=== PATIENT | male | born 1960 | race Caucasian/White ===

== ENCOUNTER 2025-01-16 11:55 | Inpatient (IN) | payer OTHER, SELFPAY ==
[2025-01-16] VITALS (8 sets, daily range): BP systolic 119–151; BP diastolic 59–79; BMI 42.5; BMI 23.8
[2025-01-16 04:51] LABS: Hematocrit 47.5 % (39.0-52.0); Hemoglobin 15.9 g/dL (13.0-18.0); Mean Corp Hgb Conc. 33.5 g/dL (33.0-37.0); Mean Corpuscular Volume 103.9 fL (80.0-94.0); Platelet Count 185 10^3/uL (130-400); Red Cell Dist. Width 14.2 % (11.5-14.5)
[2025-01-16 04:57] LABS: Urine Character Slightly Cloudy (Clear)
[2025-01-16 05:11] LABS: ALT (SGPT) 22 U/L (0-50); AST (SGOT) 31 U/L (17-59); Albumin 4.1 g/dl (3.5-5.0); Alkaline Phosphatase 239 U/L (38-126); Blood Urea Nitrogen 5 mg/dl (9-20); Calcium 9.4 mg/dl (8.4-10.2); Carbon Dioxide 26 mmol/L (22-30); Chloride 97 mmol/L (98-107); Glucose 153 mg/dl (70-99); Lipase 26 U/L (23-300); Potassium 4.3 mmol/L (3.5-5.1); Sodium 131 mmol/L (135-145); Total Protein 7.3 g/dl (6.3-8.2); eGFR > 60.00
[2025-01-16 05:17] LABS: Urine Squamous Cell >30 /LPF (Few)
[2025-01-16 05:18] LABS: Urine White Cell >100 /HPF (0-5)
--- NOTE | 2025-01-16 05:56 | ED.GENMED ---
History of Present Illness
<Chaparro Wong Jr., PA-C - Last Filed: 01/17/25 12:33>
General
Chief Complaint: Abdominal Pain
Source: patient
Exam Limitations: none
Time Seen by Provider: 01/16/25 05:12
Nursing documentation reviewed up to this point in time: agreed with
History of Present Illness
History of Present Illness:
64-year-old male past medical history of A-fib currently on Eliquis, hypertension hyperlipidemia presenting with concerns of right lower quadrant abdominal pain progressing over the past 12 hours or so. Does have some slightly loose bowel
movements. Denies any vomiting. Denies any chest pain shortness of breath. No urinary symptoms.
Past History
<Chaparro Wong Jr., PA-C - Last Filed: 01/17/25 12:33>
Past History
ED Past Medical History: HTN and Other (Gout)
Social History
Tobacco: Non-smoker
Alcohol: Occasional
Family History
Family History: Other (Mother with hypertension)
Review of Systems
<Chaparro Wong Jr., PA-C - Last Filed: 01/17/25 12:33>
Review of Systems
Allergies reviewed?: Yes
All Other Systems: ROS reviewed and negative except as documented in HPI and ROS
Phy Exam
<RYAN Bartlett Jr. Last Filed: 01/17/25 12:33>
Physical Exam
Physical Exam:
GENERAL: Alert , in no apparent distress
EYE: pupils equal and reactive
NECK: Supple, no significant adenopathy.
ENT: o/p clr, mmm.
CARDIAC: Regular rate and rhythm .
LUNGS: Clear breath sounds bilaterally, no acute respiratory distress, no wheezes/rales/rhonchi
ABDOMEN: Right lower quadrant pain also right mid abdomen discomfort no pain to the left side of the abdomen
NEUROLOGICAL: Alert and oriented, no focal neuro deficits
SKIN: Warm and dry, skin intact.
MUSCULOSKELETAL: No edema, well perfused.
PSYCH: Normal and appropriate interaction.
Course
<Chaparro Wong Jr., PA-C - Last Filed: 01/17/25 12:33>
Orders/Labs/Results
Orders:
Orders
01/16/25 04:32
C-Reactive Protein Routine
Comment: ADD ON
Complete Blood Count/With Diff Urgent
Comprehensive Metabolic Panel Urgent
Lipase Urgent
Urinalysis Reflex To Culture Urgent
Date Specimen was Collected: 01/16/25
Time Specimen was Collected: 04:26
Urine Microscopic Reflex Cult Urgent
Urine Culture Urgent
SERG Source: U
Specimen Description:
Date Specimen was Collected: 01/16/25
Time Specimen was Collected: :
01/16/25 05:45
CT Abd/Pel (IV only)-DH only Urgent
Comment:
Reason For Exam: rlq pain
01/16/25 10:50
Piperacillin/Tazo 3.375 Gram [Zosyn] 3.375 gram in 50 ml IV NOW
01/16/25 11:15
Admit/Transfer Patient As Directed
Co-Sign Provider:
Level of Care: Inpatient admission
Assign to:: Medical/Surgical
Physician / Group: Hospitalist
Diagnosis: Abdominal pain
Reason for Hospitalization: .
Expected length of stay greater than two midnights?: Yes
ELOS- Estimated Length of Stay in days: 3
I certify the patient meets the requirements for IP care: Yes
GASTROINTESTINAL CONSULT Urgent
Consulting Provider: Matthew Woods
Was physician already notified: Yes
Reason for consult: Fluid collection RLQ, not enough to drain, abd pain
PRN Pain Medication Management As Directed
May give lesser potent ordered pain med per pt: Yes
preference::
Protocol:: Medication orders for pain may be administered in a
manner that supports deferring to patient preference
when the pt is:
- Requesting an ordered lesser potent pain medication.
Least to most potent pain medications are defined
as: acetaminophen < NSAID < tramadol < opioids
(morphine, oxycodone, hydromorphone).
- Requesting a lesser dose of the same medication IF
ORDERED.
- Requesting a less intrusive route of administration
if both routes are prescribed by the provider (PO <
IV).
01/16/25 11:28
Lactic Acid Stat
Blood Culture Stat
SERG Source: Blood/Venous
Specimen Description:
01/16/25 11:49
Add On- LAB Routine
Tests Added?: crp
01/16/25 11:50
Consult Surgery [SURGICAL CONSULT] Routine
Consulting Provider: Graham Herring
Was physician already notified: Yes
Reason for consult: consulted by ED
01/16/25 15:15
Consult Surgery [SURGICAL CONSULT] Routine
Consulting Provider: Graham Herring
Was physician already notified: Yes
Reason for consult: Abodminal pain, possible acute appendicitis
DVT Contraindication [VTE Contraindication] Routine
VTE Mechanical Device Contraindication: Medical Contraindication
Pharmocologic Contraindication: Medical Contraindication
Abnormal Lab Results
01/16/25
04:32
WBC 13.0 H 10^3/uL
(4.8-10.8)
RBC 4.57 L 10^6/uL
(4.70-6.10)
MCV 103.9 H fL
(80.0-94.0)
MCH 34.8 H pg
(27.0-31.0)
Abs Immat Gran (auto) 0.1 H 10^3/uL
(0-0.05)
Absolute Neuts (auto) 10.2 H 10^3/uL
(1.4-6.5)
Absolute Lymphs (auto) 0.7 L 10^3/uL
(1.2-3.4)
Absolute Monos (auto) 1.2 H 10^3/uL
(0.1-0.6)
Absolute Eos (auto) 0.8 H 10^3/uL
(0-0.7)
Neutrophils % 78.4 H %
(42.2-75.2)
Lymphocytes % 5.5 L %
(20.5-51.1)
Monocytes % 9.4 H %
(1.7-9.3)
Sodium 131 L mmol/L
(135-145)
Chloride 97 L mmol/L
(98-107)
BUN 5 L mg/dl
(9-20)
Glucose 153 H mg/dl
(70-99)
Total Bilirubin 2.2 H mg/dl
(0.2-1.3)
Alkaline Phosphatase 239 H U/L
(38-126)
C-Reactive Protein 181.40 H mg/L
(0.0-10.00)
Urine Ketones 2+ A
(Negative)
Ur Occult Blood Reflex 1+ A
(Negative)
Urine Nitrite (Reflex) Positive A
(Negative)
Leukocyte Esterase Rfl 3+ A
(Negative)
Urine RBC 11-15 A /HPF
(0-2)
Urine WBC (Reflex) >100 A /HPF
(0-5)
Urine Bacteria (Reflex) Many A
(Negative)
Urine Albumin (Reflex) 1+ A
(Neg - Trace)
01/16/25 04:32
01/16/25 04:32
Vital Signs
Initial and Last Documented VS:
Initial Vital Signs
Temp Pulse Resp BP Pulse Ox
98.7 F 62 20 151/79 94
01/16/25 04:18 01/16/25 04:18 01/16/25 04:18 01/16/25 04:18 01/16/25 04:18
Last Documented Vital Signs
Temp Pulse Resp BP Pulse Ox
98.4 F 55 18 133/69 97
01/17/25 07:36 01/17/25 08:36 01/17/25 07:36 01/17/25 08:36 01/17/25 09:00
<Shira Torrez, FAMILY INDEPENDENCE CASE MANAGER - Last Filed: 01/16/25 15:58>
Orders/Labs/Results
Orders:
Orders
01/16/25 04:32
C-Reactive Protein Routine
Comment: ADD ON
Complete Blood Count/With Diff Urgent
Comprehensive Metabolic Panel Urgent
Lipase Urgent
Urinalysis Reflex To Culture Urgent
Date Specimen was Collected: 01/16/25
Time Specimen was Collected: 04:26
Urine Microscopic Reflex Cult Urgent
Urine Culture Urgent
SERG Source: U
Specimen Description:
Date Specimen was Collected: 01/16/25
Time Specimen was Collected: 04:26
01/16/25 05:45
CT Abd/Pel (IV only)-[facility] only Urgent
Comment:
Reason For Exam: rlq pain
01/16/25 10:50
Piperacillin/Tazo 3.375 Gram [Zosyn] 3.375 gram in 50 ml IV NOW
01/16/25 11:15
Admit/Transfer Patient As Directed
Co-Sign Provider:
Level of Care: Inpatient admission
Assign to:: Medical/Surgical
Physician / Group: Hospitalist
Diagnosis: Abdominal pain
Reason for Hospitalization: .
Expected length of stay greater than two midnights?: Yes
ELOS- Estimated Length of Stay in days: 3
I certify the patient meets the requirements for IP care: Yes
GASTROINTESTINAL CONSULT Urgent
Consulting Provider: Matthew Woods
Was physician already notified: Yes
Reason for consult: Fluid collection RLQ, not enough to drain, abd pain
PRN Pain Medication Management As Directed
May give lesser potent ordered pain med per pt: Yes
preference::
Protocol:: Medication orders for pain may be administered in a
manner that supports deferring to patient preference
when the pt is:
- Requesting an ordered lesser potent pain medication.
Least to most potent pain medications are defined
as: acetaminophen < NSAID < tramadol < opioids
(morphine, oxycodone, hydromorphone).
- Requesting a lesser dose of the same medication IF
ORDERED.
- Requesting a less intrusive route of administration
if both routes are prescribed by the provider (PO <
IV).
01/16/25 11:28
Lactic Acid Stat
Blood Culture Stat
SERG Source: Blood/Venous
Specimen Description:
01/16/25 11:49
Add On- LAB Routine
Tests Added?: crp
01/16/25 11:50
Consult Surgery [SURGICAL CONSULT] Routine
Consulting Provider: Graham Herring
Was physician already notified: Yes
Reason for consult: consulted by ED
01/16/25 15:15
Consult Surgery [SURGICAL CONSULT] Routine
Consulting Provider: Graham Herring
Was physician already notified: Yes
Reason for consult: Abodminal pain, possible acute appendicitis
DVT Contraindication [VTE Contraindication] Routine
VTE Mechanical Device Contraindication: Medical Contraindication
Pharmocologic Contraindication: Medical Contraindication
Abnormal Lab Results
01/16/25
04:32
WBC 13.0 H 10^3/uL
(4.8-10.8)
RBC 4.57 L 10^6/uL
(4.70-6.10)
MCV 103.9 H fL
(80.0-94.0)
MCH 34.8 H pg
(27.0-31.0)
Abs Immat Gran (auto) 0.1 H 10^3/uL
(0-0.05)
Absolute Neuts (auto) 10.2 H 10^3/uL
(1.4-6.5)
Absolute Lymphs (auto) 0.7 L 10^3/uL
(1.2-3.4)
Absolute Monos (auto) 1.2 H 10^3/uL
(0.1-0.6)
Absolute Eos (auto) 0.8 H 10^3/uL
(0-0.7)
Neutrophils % 78.4 H %
(42.2-75.2)
Lymphocytes % 5.5 L %
(20.5-51.1)
Monocytes % 9.4 H %
(1.7-9.3)
Sodium 131 L mmol/L
(135-145)
Chloride 97 L mmol/L
(98-107)
BUN 5 L mg/dl
(9-20)
Glucose 153 H mg/dl
(70-99)
Total Bilirubin 2.2 H mg/dl
(0.2-1.3)
Alkaline Phosphatase 239 H U/L
(38-126)
C-Reactive Protein 181.40 H mg/L
(0.0-10.00)
Urine Ketones 2+ A
(Negative)
Ur Occult Blood Reflex 1+ A
(Negative)
Urine Nitrite (Reflex) Positive A
(Negative)
Leukocyte Esterase Rfl 3+ A
(Negative)
Urine RBC 11-15 A /HPF
(0-2)
Urine WBC (Reflex) >100 A /HPF
(0-5)
Urine Bacteria (Reflex) Many A
(Negative)
Urine Albumin (Reflex) 1+ A
(Neg - Trace)
01/16/25 04:32
01/16/25 04:32
Vital Signs
Initial and Last Documented VS:
Initial Vital Signs
Temp Pulse Resp BP Pulse Ox
98.7 F 62 20 151/79 94
01/16/25 04:18 01/16/25 04:18 01/16/25 04:18 01/16/25 04:18 01/16/25 04:18
Last Documented Vital Signs
Temp Pulse Resp BP Pulse Ox
98.4 F 55 18 133/69 97
01/17/25 07:36 01/17/25 08:36 01/17/25 07:36 01/17/25 08:36 01/17/25 09:00
<Chaparro Wong Jr., PA-C - Last Filed: 01/17/25 12:33>
MDM/Problems Addressed
MDM/Problems Addressed:
64-year-old male presenting to the emergency department today with concerns of right lower quadrant abdominal pain over the past 12 hours. On arrival vital signs normal labs showing slight white count.
<Shira Torrez FAMILY INDEPENDENCE CASE MANAGER - Last Filed: 01/16/25 15:58>
MDM/Problems Addressed
MDM/Problems Addressed:
64-year-old male presenting to the emergency department today with concerns of right lower quadrant abdominal pain over the past 12 hours. On arrival vital signs normal labs showing slight white count.
8:55 AM:
64-year-old male with history of NIDDM, SIADH with hyponatremia, neuropathy, asymptomatic pyuria, pulmonary nodule followed by pulmonary (suspicious for CA), hypokalemia
Received patient from [facility]. Patient is laying quietly in bed, right lower quadrant pain he states is 7/10, started a few days ago but worsened yesterday with loose stool last night. He declines when pain med offered.
Tender RLQ, appears in no distress.
CBC: WBC 13.0 otherwise unremarkable CMP:
Mild elevation of bilirubin at 2.2, mild hyponatremia with sodium 131, alk phos 239 which is baseline for him
UA: Specimen looks contaminated with many bacteria and greater than 30 squames, WBC greater than 100, +3 leukocytes, nitrates positive. History of asymptomatic pyuria w 16-20 WBCs.
Consider treating this with >100 WBC, Culture pending
Abdomen/pelvis CT with IV only contrast radiology report read: Impression: Moderate inflammatory changes within the right lower quadrant with thickening of the terminal ileum and cecum, likely outside [employer] of a terminal ileitis. The appendix
also appears dilated and inflamed, likely secondarily involved although acute appendicitis is within the differential. Small amount of fluid in the right lower quadrant, some of which appears loculated.
Consulted general surgery Dr. Herring
10:[address] Herring requesting IV antibiotics, admit to Hospitalist, checking to see if IR can drain
Hospitalist notified of admission.
<Chaparro Wong Jr., PA-C - Last Filed: 01/17/25 12:33>
*Pulse Oximetry
SaO2: 94
Oxygen Mode of Delivery: Room air
<Shira Torrez FAMILY INDEPENDENCE CASE MANAGER - Last Filed: 01/16/25 15:58>
*Pulse Oximetry
Patient hypoxic: no
*Critical Care Note
Total Time (30-74mins, 75-104mins- exclusive of procedures): Not Applicable
ED Attending Note
<Chaparro Wong Jr., PA-C - Last Filed: 01/17/25 12:33>
-
Portions of this chart may have been created with voice recognition software.� Occasional wrong word or��sound alike� substitutions may have occurred due to the inherent limitations of voice recognition software.
Discharge Plan
Departure
Patient Disposition: Admit
Date of Disposition: 01/16/25
Time of Disposition: 10:50
Admit to: Med/Surg
Presentation/result/management discussed w/ accepting MD/DO: Hospitalist
Condition: Fair
Discharge Problem:
Intra-abdominal abscess
Interventions
Interventions:
*Risk Screen - Suicide Last Done: 01/16/25 04:21
*General Assessment Last Done: 01/16/25 04:21
*Neglect/Abuse Screening Last Done: 01/16/25 04:21
*ED- Fall Risk Assessment Last Done: 01/16/25 05:22
*ED COVID-19 Vaccine History Last Done: 01/16/25 04:21
*Nursing Disposition Last Done: 01/16/25 15:40
AZ-[id number]-Cbhpdaselk Assessment Last Done: 01/16/25 05:22
Discharge Date and Time
Discharge Date/Time: 01/16/25 15:15
[2025-01-16 06:02] LABS: Nucleated Red Blood Cells % 0 % (-)
[2025-01-16] MEDS: ZOSYN 50 IV (11:15)
--- NOTE | 2025-01-16 11:18 | HPS.HSE ---
Family Physician
-
Family Physician: Ryne Ceja
Chief Complaint
-
Abdominal pain since last night
History of Present Illness
64 years old male presented with lower abdominal pain. Started suddenly. Was mild then progressed overnight. He did not feel like eating but denied nausea or vomiting. He denied fever or chills. The pain was persistent this morning and reported
to the emergency room. In the ER, he had leukocytosis. CAT scan showed inflammation resembling terminal ileitis but could not rule out appendicitis. No fevers. Patient takes Eliquis. He was seen by surgery, recommend to hold Eliquis and
continue with IV antibiotics, GI consultation. IR reviewed the images, no drainable abscess present.
Medical History
Past Medical History
Past Medical History: Reports Other ( Arrhythmias (afib), NIDDM, hyponatremia on salt tabs, neuropathy, right eye blindness, Gout, chronic anemia.)
Past Surgical History: Reports Other (No recent major surgery )
Social History
Tobacco: Former Smoker
Alcohol: Occasional
Drug: None
Personal: Single
Living: Alone
Employment: Retired
Family History
Family History: Not pertinent
Allergies / Home Medications
Allergies reflects when Allergies were last updated in [employer].
Home Medications with original date entered in [employer]
Allergy/Medication List:
Allergies
Allergy/AdvReac Type Severity Reaction Status Date / Time
No Known Allergies Allergy Verified 01/16/25 04:24
Home Medications
allopurinol 100 mg tablet 100 mg PO DAILY Gout 11/10/22
cholecalciferol (vitamin D3) 25 mcg (1,000 unit) capsule (Vitamin D3) 25 mcg PO DAILY Supplement 11/10/22
cyanocobalamin (vitamin B-12) 1,000 mcg tablet 1,000 mcg PO DAILY Supplement 11/10/22
pantoprazole 40 mg tablet,delayed release (Protonix) 40 mg PO DAILY gi #24 tabs 11/19/22
apixaban 5 mg tablet (Eliquis) 5 mg PO BID Blood Clot Prevention/Tx 01/15/23
famotidine 40 mg tablet 40 mg PO QPM Gastrointestinal Issue 01/15/23
polyvinyl alcohol-povidone (PF) 1.4 %-0.6 % eye drops in a dropperette (Refresh Classic (PF)) 1 drops BOTH EYES BID dryness 01/15/23
sodium chloride 1,000 mg soluble tablet 1,000 mg PO BID #60 tabs 01/18/23
torsemide 5 mg tablet 5 mg PO DAILY #30 tabs 01/18/23
carvedilol 12.5 mg tablet (Coreg) 12.5 mg PO BID 01/16/25
metformin 500 mg tablet 500 mg PO DAILY Constipation 01/16/25
pregabalin 100 mg capsule (Lyrica) 100 mg PO DAILY 01/16/25
pregabalin 100 mg capsule (Lyrica) 200 mg PO HS 01/16/25
Review of Systems
-
History Source: Patient
A 12 point ROS was completed and negative except as noted: Yes
Constitutional: Denies Fever
EENT: Denies Sore Throat
Respiratory: Denies Cough
Cardiac: Denies Chest Pain
Abdomen/GI: Reports Abdominal Pain and Diarrhea; Denies Nausea or Vomiting
: Denies Dysuria
Musculoskeletal: Denies Joint Pain or Joint Swelling
Skin: Denies Rash
Neurological: Denies Numbness
Endocrine: Denies Temp Intolerance
Hematologic/Lymphatic: Denies Bruising
Psych: Denies Panic Disorder
Physical Exam
Vital Signs
Vital Signs
Temp Pulse Resp BP Pulse Ox
98.7 F 56 18 135/75 96
01/16/25 04:18 01/16/25 08:32 01/16/25 08:30 01/16/25 07:00 01/16/25 08:30
Physical Exam
General: No Apparent Distress and Comfortable
HEENT: Moist mucous membranes, Atraumatic and Other (right cornea opacity )
Respiratory: Clear; No Wheezes
Cardiac: S1/S2 and Regular Rhythm
GI: Soft and Tender (RLQ)
Genito-urinary: No Silveira
Musculoskeletal: No Edema
Skin: Warm; No Jaundice
Neuro: AO x 3 and Nonfocal/grossly intact
Psych: Calm and Intact Judgment/Insight
Laboratory Results
-
01/16/25 04:32
01/16/25 04:32
Laboratory Results
Total Bilirubin 2.2 mg/dl (0.2-1.3) H 01/16/25 04:32
AST 31 U/L (17-59) 01/16/25 04:32
ALT 22 U/L (0-50) 01/16/25 04:32
Alkaline Phosphatase 239 U/L (38-126) H 01/16/25 04:32
Lipase 26 U/L (23-300) 01/16/25 04:32
Impression/Plan
-
64 years old male presented with abdominal pain
#Acute terminal colitis, cannot rule out appendicitis/inflammatory bowel disease
Admit the patient to the hospital. Patient is not toxic appearing. Positive leukocytosis.
Patient was seen by surgery, add inflammatory marker, CRP to blood work. Will try clear liquid diet.
IV antibiotics.
Holding Eliquis in case surgical intervention will be needed.
Add lactic acid to the lab
Blood culture
Appreciate surgery and GI help
# History of paroxysmal A-fib. Currently in sinus rhythm. Holding Eliquis for possible surgical intervention. Continue with rate control.
# Essential hypertension
Continue with carvedilol. Holding diuretic torsemide temporarily while severe inflammation.
# History of diabetes. Will continue with insulin sliding scale. Avoid hypoglycemia.
#Diabetic neuropathy, continue home dose of Lyrica.
# History of gout, continue with allopurinol
# Chronic hyponatremia. Continue with salt tablets.
Total time spent to see the patient, examine the patient, review lab results and data, discuss treatment plan with patient, ER doctor, nursing staff around 75 minutes
--- NOTE | 2025-01-16 11:33 | CON.GS ---
Addendum entered and electronically signed by Graham Herring MD 01/16/25 14:01:
I saw and examined the patient.
The Clutch Mechanic's note was reviewed and I agree with the note.
Comment: 24hrs of RLQ pain that began in the RLQ. SDenies f/c/n/v. Denmies anorexia. Denies migration of pain. Never had this pain before. Mild-mod ttp to RLQ on exam without guarding. AFVSS. WBC 13K. CT c/w terminal ileitis vs acute appendicitis.
More likely ileitis given his presentation. Plan for obs admit with iv abx. Hold eliquis for now. Last dose am. OK for CLD. Rec GI consult. Will follow
Original Note:
Consultation
-
Date/Time Consultation Performed: 01/16/25 1045
Medical History
-
Chief Complaint: RLQ pain
History of Present Illness:
Mr Alvarez is a 64 yo male with a h/o Afib on Eliquis (LD 01/15 am), DM, alcoholic hepatitis, colitis, HTN and gout who presented through the ED with RLQ pain. He notes it began yesterday as a sharp pain and progressively became worse. He was able
to go to sleep last night but was awakened from sleep after midnight due to the pain which he notes doubled him over causing him to present for evaluation. He denies acute appetite changes but does note that he has not had much of an appetite over
the summer which he attributes to the heat. He denies nausea or vomiting. He has a few episodes of nonbloody diarrhea since yesterday. He denies fevers or chills. On exam, there is focal tenderness present to the RLQ without distention noted. He has
done cologuard testing but has never had a colonscopy.
Past Medical History
Past Medical History: Arrhythmias (afib), NIDDM and Other (hyponatremia on salt tabs, neuropathy, right eye blindness)
Social History
Tobacco: Former Smoker
Personal: Single
Living: Alone
Employment: Employed ([employer], semi-retired)
Family History
Family History: Reviewed & Not Pertinent
Allergies / Home Medications
Allergy/AdvReac Type Severity Reaction Status Date / Time
No Known Allergies Allergy Verified 01/16/25 04:24
�Medication �Instructions �Recorded �Confirmed �Type
allopurinol 100 mg tablet 100 mg PO DAILY Gout 11/10/22 01/16/25 History
cholecalciferol (vitamin D3) 25 25 mcg PO DAILY Supplement 11/10/22 01/16/25 History
mcg (1,000 unit) capsule (Vitamin
D3)
cyanocobalamin (vitamin B-12) 1,000 mcg PO DAILY Supplement 11/10/22 01/16/25 History
1,000 mcg tablet
pantoprazole 40 mg tablet,delayed 40 mg PO DAILY gi #24 tabs 11/19/22 01/16/25 Rx
release (Protonix)
apixaban 5 mg tablet (Eliquis) 5 mg PO BID Blood Clot 01/15/23 01/16/25 History
Prevention/Tx
famotidine 40 mg tablet 40 mg PO QPM Gastrointestinal Issue 01/15/23 01/16/25 History
polyvinyl alcohol-povidone (PF) 1 drops BOTH EYES BID dryness 01/15/23 01/16/25 History
1.4 %-0.6 % eye drops in a
dropperette (Refresh Classic (PF))
sodium chloride 1,000 mg soluble 1,000 mg PO BID #60 tabs 01/18/23 01/16/25 Rx
tablet
torsemide 5 mg tablet 5 mg PO DAILY #30 tabs 01/18/23 01/16/25 Rx
carvedilol 12.5 mg tablet (Coreg) 12.5 mg PO BID 01/16/25 01/16/25 History
metformin 500 mg tablet 500 mg PO DAILY Constipation 01/16/25 01/16/25 History
pregabalin 100 mg capsule (Lyrica) 100 mg PO DAILY 01/16/25 01/16/25 History
pregabalin 100 mg capsule (Lyrica) 200 mg PO HS 01/16/25 01/16/25 History
Review of Systems
-
History Source: Patient
All other systems: Negative unless noted
A 10 point review of systems was completed, and was negative except as per HPI.
Physical Exam
Vital Signs
Temp Pulse Resp BP Pulse Ox
98.7 F 56 18 135/75 96
01/16/25 04:18 01/16/25 08:32 01/16/25 08:30 01/16/25 07:00 01/16/25 08:30
01/15/25 01/16/25 01/17/25
06:59 06:59 06:59
Actual Weight 84 kg
Body Mass Index (BMI) 42.5
Lab Results
01/16/25 04:32
01/16/25 04:32
WBC 13.0 10^3/uL (4.8-10.8) H 01/16/25 04:32
Hgb 15.9 g/dL (13.0-18.0) 01/16/25 04:32
Hct 47.5 % (39.0-52.0) 01/16/25 04:32
Plt Count 185 10^3/uL (130-400) 01/16/25 04:32
Abs Immat Gran (auto) 0.1 10^3/uL (0-0.05) H 01/16/25 04:32
Neutrophils % 78.4 % (42.2-75.2) H 01/16/25 04:32
Physical Exam
General: Well Developed and Comfortable
HEENT: Other (missing teeth, right eye blind)
GI: Soft, Non Distended and Tender (RLQ)
Skin: Warm and Dry
Neuro: Awake, Alert and AO x 3
Psych: Calm
Data Reviewed
-
CT Scan: Image Personally Visualized and interpreted, Report Reviewed by me, Discussed with Physician and Discussed with Patient
Labs: Labs Reviewed by me, Discussed with Physician and Discussed with Patient
Old Records: Reviewed
Assessment / Plan
-
64 yo male presenting with a h/o Afib on Eliquis (LD 724 am), DM, alcoholic hepatitis, colitis, HTN and gout who presented through the ED with RLQ pain [id number] with diarrhea. CT imaging reviewed with inflammatory process noted to the right lower
quadrant with ascending colon and terminal ileal thickening with appendiceal distention as well with small surrounding fluid. Diverticulum seen as well throughout the colon. Case discussed with IR, no drainable abscess present. High suspicion for
IBD although a more acute process such as appendicitis or diverticulitis of the ascending colon remains in the differential. Of note UA + for nitrites, leuks, bacteria with cx pending ?UTI. Mild leukocytosis present. Afebrile, vitals stable.
Plan:
Consult GI for IBD work up
Will add CRP to labs
Ok for Clears from surgical standpoint, no plans for surgery at this time
Continue IV ABX
Hold Eliquis in case procedure/surgery becomes warranted
--- NOTE | 2025-01-16 11:36 | EDRN ---
While patient was receiving Zosyn abx patient stated he started to feel itchy around his groin, this RN was at bedside and stopped the infusion. Patient received about 40ml of medication. Patient noted to have a hive on right leg. Dr. Muñoz at
bedside at this time and made aware.
--- NOTE | 2025-01-16 13:52 | CON.GI ---
Addendum entered and electronically signed by Matthew Woods DO 01/16/25 16:14:
I saw and examined the patient.
The CELLULOID TRIMMER's note was reviewed and I agree with the note.
Comment: Mr. Alvarez is a 64 y.o male with past medical history of HTN, HLD, non-IDDM, R eye blindness, and A Fib (on eliquis) who presented to the ED with RLQ abdominal pain. He denies any looser stools, diarrhea, nausea/vomiting or other
fevers/chills. Denies any similar symptoms in the past. Of note, previous CT imaging back on 2022 (for diarrhea/dizziness) revealed diffuse wall thickening and adjacent inflammatory changes consistent with colitis which was most pronounced within
the cecum and ascending colon. He previously declined a colonoscopy due to fear of complications of the procedure and notes a previous Cologuard which was negative. Otherwise, no family hx of CRC or IBD. He denies any significant NSAIDs. On
admission, labs notable for leukocytosis of 13k along with CRP 181. CT imaging revealed moderate inflammatory changes within the RLQ with thickening of the terminal ileum and cecum concerning for terminal ileitis. Additionally, concerned for a
dilated and inflammed appendix concerning for possible appendicits along with small amount of loculated fluid. Clinically, his presentation seems most consistent with ileitis rather than appendicitis. Further, concern for underlying IBD given his
prior CT imaging in the past and appears to have chronicity as well based on his repeat CT scan. Much less likely infectious although should still be ruled out with stool culture along with Yersinia as can cause pseudoappendicitis as well as
terminal ileitis. He would benefit from an eventual colonoscopy but would defer at this time given the concern for possible appendicitis and favor treating empirically with IV abx for now while waiting for his inflammation to improve. In the
meantime, would obtain fecal calprotectin and okay to trial CLD today. Patient did express interest in potentially being discharged tomorrow. Favor monitoring at least for 24 hours along with IV antibiotics along with obtaining stool studies as
below. Appreciate surgical recs given the concern for possible appendicitis but again doubt clinically. See rest of care as outlined below for additional recommendations.
GI will continue to follow, please call with any questions or concerns.
Original Note:
Consultation
-
Date/Time Consultation Requested: 01/16/25 1130
Date/Time Consultation Performed: 01/16/25 1350
Requesting Provider: SHANDA Heller
Performing Provider: SHANDA Casas, Matthew Woods DO
Reason for Consultation: ileitis/appendicitis
Medical History
Chief Complaint / HPI
Chief Complaint: weakness, yellow skin, dark urine
History of Present Illness:
The patient is a 64-year-old male with a past medical history significant for afib on Eliquis, NIDDM, ETOH hepatitis, colitis, gout, hypertension, hyponatremia, hyperlipidemia, right eye blindness with ER eval for RLQ pain. On admission noted with
WBC 13,000, Na 131, bili 2.2, AST 31, ALT 22, alk phos 239, CRP 181.4. Ct on admission inflammatory changes RLQ of TI and cecum with terminal ileitis with appendix dilated. In review with patient pain began 4 pm 01/16. Pain was 7/10 and still
persistent today. Pain worse with movement and minimally improved since admission. Pt denies similar pain. He did have abnormal CT in 2022 with similar finding with colitis pronounced in cecum and ascending colon but noted in majority of colon
with pt was noted with ETOH hepatitis. He was recommended colonoscopy but declined to proceed with concern for complication. He admits to completing follow up Cologuard that was negative. He denies any chronic GI issues with odynophagia, dysphagia,
GERD, nausea, vomiting, diarrhea, constipation, abdominal pain, or rectal bleeding but did have some diarrhea after admission.
Past Medical History
Past Medical History: Arrhythmias (afib ), HTN, Hypercholesterolemia, NIDDM and Other (chronic hyponatremia, right eye blindness, ETOH hepatitis, coltiis, gout,hepatic steatosis )
Past Surgical History: Other (corneal transplant)
Social History
Tobacco: Other (cigar in past )
Alcohol: None (quit 2012 )
Drug: None
Living: Other (friend )
Employment: Employed ([employer] work )
Family History
Family History: Other (father-liver cirrhosis; no FH CRC, pancreatic or liver cancer)
Allergies / Home Medications
Allergy/AdvReac Type Severity Reaction Status Date / Time
No Known Allergies Allergy Verified 01/16/25 04:24
�Medication �Instructions �Recorded
allopurinol 100 mg tablet 100 mg PO DAILY Gout 11/10/22
cholecalciferol (vitamin D3) 25 25 mcg PO DAILY Supplement 11/10/22
mcg (1,000 unit) capsule (Vitamin
D3)
cyanocobalamin (vitamin B-12) 1,000 mcg PO DAILY Supplement 11/10/22
1,000 mcg tablet
pantoprazole 40 mg tablet,delayed 40 mg PO DAILY gi #24 tabs 11/19/22
release (Protonix)
apixaban 5 mg tablet (Eliquis) 5 mg PO BID Blood Clot 01/15/23
Prevention/Tx
famotidine 40 mg tablet 40 mg PO QPM Gastrointestinal Issue 01/15/23
polyvinyl alcohol-povidone (PF) 1 drops BOTH EYES BID dryness 01/15/23
1.4 %-0.6 % eye drops in a
dropperette (Refresh Classic (PF))
sodium chloride 1,000 mg soluble 1,000 mg PO BID #60 tabs 01/18/23
tablet
torsemide 5 mg tablet 5 mg PO DAILY #30 tabs 01/18/23
carvedilol 12.5 mg tablet (Coreg) 12.5 mg PO BID 01/16/25
metformin 500 mg tablet 500 mg PO DAILY Constipation 01/16/25
pregabalin 100 mg capsule (Lyrica) 100 mg PO DAILY 01/16/25
pregabalin 100 mg capsule (Lyrica) 200 mg PO HS 01/16/25
Review of Systems
-
History Source: Patient
Constitutional: Reports No Symptoms
EENT: Reports No Symptoms
Respiratory: Reports No Symptoms
Cardiac: Reports No Symptoms
Abdomen/GI: Reports Diarrhea (after admission)
: Reports Dark Urine
Musculoskeletal: Reports No Symptoms
Skin: Reports No Symptoms
Neurological: Reports No Symptoms
Endocrine: Reports No Symptoms
Hematologic/Lymphatic: Reports No Symptoms
Vital Signs
Temp Pulse Resp BP Pulse Ox
98.7 F 52 15 133/75 98
01/16/25 04:18 01/16/25 13:30 01/16/25 13:30 01/16/25 13:21 01/16/25 13:21
Physical Exam
Exam
General: Well Developed, Well Nourished and No Apparent Distress
HEENT: Other (right eye deviation with blindness )
Respiratory: Clear
Cardiac: Regular Rhythm
GI: Soft, Non Distended and Tender (right lower abdomen )
Musculoskeletal: No Clubbing and No Cyanosis
Skin: Warm and Dry
Neuro: Awake, Alert and AO x 3
Psych: Calm
Results
WBC 13.0 10^3/uL (4.8-10.8) H 01/16/25 04:32
Hgb 15.9 g/dL (13.0-18.0) 01/16/25 04:32
Hct 47.5 % (39.0-52.0) 01/16/25 04:32
MCV 103.9 fL (80.0-94.0) H 01/16/25 04:32
Plt Count 185 10^3/uL (130-400) 01/16/25 04:32
Absolute Neuts (auto) 10.2 10^3/uL (1.4-6.5) H 01/16/25 04:32
Sodium 131 mmol/L (135-145) L 01/16/25 04:32
Potassium 4.3 mmol/L (3.5-5.1) 01/16/25 04:32
Chloride 97 mmol/L (98-107) L 01/16/25 04:32
Carbon Dioxide 26 mmol/L (22-30) 01/16/25 04:32
BUN 5 mg/dl (9-20) L 01/16/25 04:32
Creatinine 1.1 mg/dL (0.7-1.3) 01/16/25 04:32
Calcium 9.4 mg/dl (8.4-10.2) 01/16/25 04:32
Total Bilirubin 2.2 mg/dl (0.2-1.3) H 01/16/25 04:32
AST 31 U/L (17-59) 01/16/25 04:32
ALT 22 U/L (0-50) 01/16/25 04:32
Alkaline Phosphatase 239 U/L (38-126) H 01/16/25 04:32
Lipase 26 U/L (23-300) 01/16/25 04:32
Diagnostic Image Results:
01/16/25 CT Abd/Pel (IV only)-DH only
1. Moderate inflammatory changes within the right lower quadrant with thickening of the terminal ileum and cecum, likely regional sales representative of a terminal ileitis. The appendix also appears dilated and inflamed, likely secondarily involved although
acute appendicitis is within the differential. Small amount of fluid in the right lower quadrant, some of which appears loculated.
2. Additional findings above.
11/11/22 MR Abdomen W/o & W Contrast
1. No MRCP evidence for choledocholithiasis. No intrahepatic or extrahepatic bile duct dilation.
2. Severe hepatic steatosis.
11/10/24 CT Abd/pelvis W Iv Cont
1. Diffuse wall thickening and adjacent inflammatory change adjacent to the colon, consistent with colitis. Colitis is most pronounced within the cecum and proximal ascending colon, but involves the majority of the colon. Colitis is likely
infectious or inflammatory. No evidence of pneumatosis intestinalis or extraluminal air.
2. Scattered diverticuli are seen within the colon, however there is no CT evidence of diverticulitis.
3. Severe diffuse fatty infiltration of the liver, which is approximately equal in attenuation to the gallbladder on delayed phase images. No biliary ductal dilation is appreciated.
4. Small gastric diverticulum arising from the greater curvature, without inflammatory change to suggest gastric diverticulitis.
Prior GI Procedures:
EGD: none
Colonoscopy: none reports neg Cologuard in past
Assessment / Plan
-
The patient is a 64-year-old male with a past medical history significant for afib on Eliquis, NIDDM, ETOH hepatitis denies current use, prior noted colitis, gout, hypertension, hyponatremia, hyperlipidemia, right eye blindness with ER eval for RLQ
pain. On admission noted with WBC 13,000, Na 131, bili 2.2, AST 31, ALT 22, alk phos 239, CRP 181.4. Ct on admission inflammatory changes RLQ of TI and cecum with terminal ileitis with appendix dilated. In review with patient pain began 4 pm
01/16. Pain was 7/10 and still persistent today. Pain worse with movement and minimally improved since admission. Pt denies similar pain. He did have abnormal CT in 2022 with similar finding with colitis pronounced in cecum and ascending colon
but noted in majority of colon with pt was noted with ETOH hepatitis. He was recommended colonoscopy but declined to proceed with concern for complication. He admits to completing follow up Cologuard that was negative. He denies any chronic GI
issues.
-RLQ pain -- CT with inflammatory likely regional sales representative of a terminal ileitis with dilated appendix
-leukocytosis
-prior CT-- 2022 with colitis pronounced cecum and ascending colon
-elevated CRP
other med problems:
afib on Eliquis
- NIDDM
-ETOH hepatitis denies current use
-gout
- hypertension
-hyponatremia
-hyperlipidemia
-right eye blindness
PLAN:
etiology of symptoms concern for colitis-acute vs chronic with CT 2022 similar finding vs appendix related
appreciate surgical consult
agree with abx
add stool cultures including yersinia
add fecal calprotectin
advance diet as tolerated
discussed with patient about colonoscopy -- ideally in several week after inflammatory process improves as did not proceed in past -- he is concerned about risks-- discussed without colonoscopy cannot confirm if chronic colitis is present
current Eliquis hold
OP follow up with Dr. Wade
pt asking about discharge for AM -- advised he would be seen in AM to determine if stable for discharge-- discussed if not medically stable if need to leave may need to sign of against medical advise
-
-
Thank you for consultation and allowing me to participate in the patient's care. Please call the nutritionist public health GI physician during the after hours with any questions or concerns.
[2025-01-16 13:56] LABS: C-Reactive Protein 181.40 mg/L (0.0-10.00)
--- NOTE | 2025-01-16 14:22 | CM ---
Patient seen at bedside in ed. Patient states that he lives with a friend that is not always at home. Patient PCP is Dr. Ceja and he uses the [facility] in [place] for pharmacy needs.
Patient states that he is no driving at this time and has had no needs for VN in the past. Patient uses a cane but has a walker at home. Patient home is a one story home. Patient stated that he has important plans for Sunday and he is uncertain if
he can stay longer than tomorrow. CM will continue to follow for discharge planning needs.
Plan home with no needs vs home with VN
[2025-01-16] MEDS: NSS 1000 IV (15:42)
--- NOTE | 2025-01-16 15:53 | PTCARENOTE ---
Received patient from ED via stretcher. AAOx3, ambulated to bed. Assessed and oriented to room. Call ruiz in close reach.
[2025-01-16] MEDS: INVANZ 60 MG IV (16:04)
[2025-01-16 16:28] LABS: Glucose - Point of Care 106 mg/dl (70-99)
[2025-01-16] MEDS: PEPCID 40 MG PO (16:55)
[2025-01-16] MEDS: COREG 12.5 MG PO (21:03)
[2025-01-16] MEDS: LYRICA 200 MG PO (21:03)
[2025-01-16] MEDS: SODIUM CHLORIDE 1 GRAM PO (21:03)
[2025-01-16 22:06] LABS: Glucose - Point of Care 103 mg/dl (70-99)
[2025-01-17] MEDS: NSS IV (03:26)
--- NOTE | 2025-01-17 06:30 | W.PN.GI.CBS2 ---
Today's Communication / Plan
-
Advance diet as tolerated to low-residue, low-fiber diet. Favor continuing antibiotics and can transition to Augmentin near discharge. Reasonable to d/c if tolerating solids with close outpatient follow-up with his primary GI, Dr. Wade, as
patient would eventually benefit from an eventual colonoscopy as outpatient. See rest of care as outlined below.
Assessment / Plan
-
#RLQ Abd Pain
#C/f Terminal Ileitis w/ Dilated Appendix
#Leukocytosis
#Prior CT Imaging with Right-sided Colitis (2022)
Impression: Mr. Alvarez is a 64 y.o male with past medical history of HTN, HLD, non-IDDM, R eye blindness, and A Fib (on eliquis) who presented to the ED with RLQ abdominal pain. He denies any looser stools, diarrhea, nausea/vomiting or other
fevers/chills. Denies any similar symptoms in the past. Of note, previous CT imaging back on 2022 (for diarrhea/dizziness) revealed diffuse wall thickening and adjacent inflammatory changes consistent with colitis which was most pronounced within
the cecum and ascending colon. He previously declined a colonoscopy due to fear of complications of the procedure and notes a previous Cologuard which was negative. Otherwise, no family hx of CRC or IBD. He denies any significant NSAIDs. On
admission, labs notable for leukocytosis of 13k along with CRP 181. CT imaging revealed moderate inflammatory changes within the RLQ with thickening of the terminal ileum and cecum concerning for terminal ileitis. Additionally, concerned for a
dilated and inflammed appendix concerning for possible appendicits along with small amount of loculated fluid. Clinically, his presentation seems most consistent with ileitis rather than appendicitis. Further, concern for underlying IBD given his
prior CT imaging in the past and appears to have chronicity as well based on his repeat CT scan. Much less likely infectious although should still be ruled out with stool culture along with Yersinia as can cause pseudoappendicitis as well as
terminal ileitis. He would benefit from an eventual colonoscopy but would defer at this time given the concern for possible appendicitis and favor treating empirically with IV abx for now while waiting for his inflammation to improve. In the
meantime, would obtain fecal calprotectin and favor ongoing CLD and may advanced diet as tolerated,
Recommendations:
- Tolerating CLD yesterday, may advance diet as tolerated to low-fiber, low-residue from GI standpoint
- Given his resolution of abdominal pain, reasonable to d/c as patient is very eager to go home. Would trial low-residue diet and if tolerating advised f/u with his primary GI
- Would continue empiric IV abx, would transition to oral antibiotics with Augmentin near discharge for 10 day course
- No stool studies have yet to be sent as without any recent BM. Would send stool cultures, Yersinia, along with fecal calprotectin if able to have BM
- No plans for an inpatient colonoscopy at this time, but discussed close follow-up with his primary Control Center Operator with Dr. Wade as an outpatient given the concern for IBD
- Counseled to avoid NSAIDs, limit alcohol
- Surgery following- appreciate recs
- Rest of care as per primary team
Discussed with primary internal medicine team. GI will continue to follow if patient remains in hospital, however if tolerating solids reasonable to discharge as long as okay with surgery.
Subjective
Subjective
Date of Service: January 17, 2025
- No stool studies
- Remains on IV Zosyn, otherwise no acute events overnight
Feeling well, denies any further RLQ discomfort or other abdominal pain. Denies any recent bowel movement, but passing flatus. No other nausea or vomiting. Denies any fevers, chills or other constitutional symptoms.
Objective
Data Reviewed
Laboratory Data:
Laboratory Results
Total Bilirubin 2.2 mg/dl (0.2-1.3) H 01/16/25 04:32
AST 31 U/L (17-59) 01/16/25 04:32
ALT 22 U/L (0-50) 01/16/25 04:32
Alkaline Phosphatase 239 U/L (38-126) H 01/16/25 04:32
Lipase 26 U/L (23-300) 01/16/25 04:32
Vital Signs and I&O:
Vital Signs
Temp Pulse Resp BP Pulse Ox
97.6 F 62 16 119/59 97
01/16/25 23:06 01/16/25 23:06 01/16/25 23:06 01/16/25 23:06 01/16/25 23:06
I&O
01/15/25 01/16/25 01/17/25
06:59 06:59 06:59
Intake Total 1220 / 1220
Balance 1220 / 1220
Physical Exam
Physical Exam
HEENT: Anicteric and Moist mucous membranes
Pulmonary: Other (Normal WOB on room air)
GI: Soft, Non Distended and Non Tender
Neuro: Non Focal
[2025-01-17 07:36] VITALS: BP 133/69
[2025-01-17 08:13] LABS: Glucose - Point of Care 91 mg/dl (70-99)
[2025-01-17 08:16] LABS: Hematocrit 44.7 % (39.0-52.0); Hemoglobin 15.2 g/dL (13.0-18.0); Mean Corp Hgb Conc. 34.0 g/dL (33.0-37.0); Mean Corpuscular Volume 102.8 fL (80.0-94.0); Platelet Count 165 10^3/uL (130-400); Red Cell Dist. Width 13.6 % (11.5-14.5)
[2025-01-17] MEDS: PROTONIX 40 MG PO (08:35)
[2025-01-17] MEDS: SODIUM CHLORIDE 1 GRAM PO (08:35)
[2025-01-17] MEDS: ZYLOPRIM 100 MG PO (08:35)
[2025-01-17] MEDS: COREG 12.5 MG PO (08:36)
[2025-01-17] MEDS: LYRICA 100 MG PO (08:37)
--- NOTE | 2025-01-17 08:55 | W.PN.HOSP.TC ---
Today's Communication/Plan
-
discharge if tolerates diet
Assessment / Plan
Assessment / Plan
Physical Exam
General: No Apparent Distress and Comfortable
HEENT: Moist mucous membranes, Atraumatic and Other (right cornea opacity )
Respiratory: Clear; No Wheezes
Cardiac: S1/S2 and Regular Rhythm
GI: Soft and not Tender (RLQ)
Genito-urinary: No Silveira
Musculoskeletal: No Edema
Skin: Warm; No Jaundice
Neuro: AO x 3 and Nonfocal/grossly intact
Psych: Calm and Intact Judgment/Insight
64 years old male presented with abdominal pain
#Acute terminal colitis with Dilated Appendix
he is feeling much better
Afebrile
Leukocytosis resolved
Blood culture NGTD
Normal abdominal exam
No tenderness on exam
Passing gas
No nausea, tolerating oral intake
Tolerated antibiotic
He is insisting to go home, seen by GI doctor, ok to dc on oral antibiotic with OP follow up
Appreciate surgery and GI help
# History of paroxysmal A-fib. Currently in sinus rhythm. Holding Eliquis for possible surgical intervention. Continue with rate control.
# Essential hypertension
Continue with carvedilol. Can resume diuretic torsemide upon discharge.
# History of diabetes. No changes intended.
#Diabetic neuropathy, continue home dose of Lyrica.
# History of gout, continue with allopurinol. No joint swelling or tenderness.
# Chronic hyponatremia. Continue with salt tablets.
Total discharge time spent to see the patient, examine the patient, review lab results and data, discuss discharge/ treatment plan with patient, consultants, nursing staff around 65 minutes
Anticipated Discharge: Today
Subjective/Interval History
-
Date of Service: January 17, 2025
No chest pain
No abdominal pain
No nausea
Wants to go home
Objective Data
-
Labs:
Laboratory Results
01/17/25 01/17/25
07:54 08:24
WBC 9.5
Hgb 15.2
Hct 44.7
Plt Count 165
Sodium Cancelled Pending
Potassium Cancelled Pending
Chloride Cancelled Pending
Carbon Dioxide Cancelled Pending
BUN Cancelled Pending
Creatinine Cancelled Pending
Glucose Cancelled Pending
Calcium Cancelled Pending
Total Bilirubin Cancelled Pending
AST Cancelled Pending
ALT Cancelled Pending
Alkaline Phosphatase Cancelled Pending
Vital Signs:
Vital Signs
Temp Pulse Resp BP Pulse Ox
98.4 F 55 18 133/69 97
01/17/25 07:36 01/17/25 08:36 01/17/25 07:36 01/17/25 08:36 01/17/25 07:36
I&O
01/16/25 01/17/25 01/18/25
06:59 06:59 06:59
Intake Total 1220 / 1220
Balance 1220 / 1220
[2025-01-17] MEDS: OMNICEF 300 MG PO (10:13)
--- NOTE | 2025-01-17 11:20 | CM ---
CM met with pt bedside
DC order noted
Pt already dressed and ambulating in the hallway
Plan for home no needs
Friend has been contacted and will transport home
Discharge Disposition- home no needs, friend transport
--- NOTE | 2025-01-17 11:57 | W.DCSUMMARY ---
Discharge Summary
Discharge Data
Date of Admission: 01/16/25
Date of Discharge: 01/17/25
-
Pending Results: No
Hospital Course
64 years old male presented with abdominal pain. He had leukocytosis and reported mild diarrhea at home. His pain was lower abdominal mostly to the right side. He was evaluated by surgery and GI doctor. CAT scan showed signs of terminal ileitis
which was extensive and dilated appendix after reviewing the images by surgery and GI. Plan to give antibiotic and IV hydration. Pain subsided. Patient did not need pain medicine. He was maintained on usual dose of Lyrica. Patient was able to
tolerate diet. Recommendations were to follow with GI in the office. GI did not think the inflammation consistent with inflammatory bowel disease but was mostly infectious due to sudden onset and lack of other signs. Blood culture did not show
any growth. Leukocytosis resolved. Patient remained hemodynamically stable. He was able to ambulate independently without discomfort. Patient was given oral antibiotic with no reaction. Patient was discharged home in stable condition.
Discharge Plan
-
Patient Disposition: Home (Routine Discharge)
Discharge Diagnosis/Procedures: Acute terminal ileitis with Dilated Appendix
You were seen by surgery and GI doctor. You are given antibiotic. You will need to follow-up with GI doctor in the office.
You will need to finish course of oral antibiotic. You are discharged on cefdinir, potential side effects include GI symptoms like diarrhea/skin rashes/allergy.
Diet: Low Residue and Diabetic, Carb Controlled
Additional Diets: Continue with low residue diet for 3 days then advance to regular diet if no abdominal pain or nausea
Referrals:
Ryne Ceja MD [Family Provider, Family Practice] - in one to two weeks
Monica Wade MD [Active, Gastroenterology]
Referral Note: call GI to arrange 3-4 week follow up. Will need to consider colonoscopy to evaluate RUQ colon thickening noted in 2022 and 2024 to rule out chronic colitis
Prescriptions:
New
cefdinir 300 mg Capsule
300 mg PO Q12 Qty: 18 0RF
Continued
cyanocobalamin (vitamin B-12) 1,000 mcg Tablet
1,000 mcg PO DAILY
allopurinol 100 mg tablet
100 mg PO DAILY
cholecalciferol (vitamin D3) [Vitamin D3] 25 mcg (1,000 unit) Capsule
25 mcg PO DAILY
pantoprazole [Protonix] 40 mg tablet,delayed release (DR/EC)
40 mg PO DAILY Qty: 24 0RF
famotidine 40 mg tablet
40 mg PO QPM
Eliquis 5 mg tablet
5 mg PO BID
Refresh Classic (PF) 1.4-0.6 % dropperette
1 drops BOTH EYES BID
torsemide 5 mg Tablet
5 mg PO DAILY Qty: 30 0RF
sodium chloride 1,000 mg Tablet,Soluble
1,000 mg PO BID Qty: 60 0RF
metformin 500 mg tablet
500 mg PO DAILY
carvedilol [Coreg] 12.5 mg Tablet
12.5 mg PO BID
pregabalin [Lyrica] 100 mg Capsule
100 mg PO DAILY
pregabalin [Lyrica] 100 mg Capsule
200 mg PO HS
Discharge Orders:
Discharge Patient (As Directed); Ordered 01/17/25
Ordered By: Chandrakant Muñoz
Discharge Date and Time
Discharge Date/Time: 01/17/25 12:42
Print Language: BOLIVIAN
[2025-01-17 12:02] LABS: ALT (SGPT) 18 U/L (0-50); AST (SGOT) 22 U/L (17-59); Albumin 3.8 g/dl (3.5-5.0); Alkaline Phosphatase 214 U/L (38-126); Blood Urea Nitrogen 12 mg/dl (9-20); Calcium 9.0 mg/dl (8.4-10.2); Carbon Dioxide 21 mmol/L (22-30); Chloride 101 mmol/L (98-107); Estimated Creatinine Clearance 87 ml/min; Glucose 124 mg/dl (70-99); Potassium 4.0 mmol/L (3.5-5.1); Sodium 132 mmol/L (135-145); Total Protein 6.9 g/dl (6.3-8.2); eGFR > 60.00
--- NOTE | 2025-01-17 12:15 | W.PN.GS2 ---
Today's Communication / Plan
-
No plan for surgery.
For discharge today and follow-up with GI.
Assessment / Plan
-
Probable terminal ileitis and clinically doing well.
His pain has resolved and his white count is normalized.
Subjective Data
-
Date of Service: January 17, 2025
He is tolerating low residue diet and has no pain.
Objective Data
-
Intake and Output
01/16/25 01/17/25 01/18/25
06:59 06:59 06:59
Intake Total 1220 / 1220
Balance 1220 / 1220
Intake:
Oral fluids 960 / 960
IV fluids (Total) 200 / 200
IV piggybacks 60 / 60
Other:
Number of approximated MODERATE 2
amounts of urine
Vital Signs
Temp Pulse Resp BP Pulse Ox
98.4 F 55 18 133/69 97
01/17/25 07:36 01/17/25 08:36 01/17/25 07:36 01/17/25 08:36 01/17/25 09:00
Lab Results
01/17/25 07:54
01/17/25 09:25
Calcium 9.0 mg/dl (8.4-10.2) 01/17/25 09:25
Total Bilirubin 1.3 mg/dl (0.2-1.3) 01/17/25 09:25
AST 22 U/L (17-59) 01/17/25 09:25
ALT 18 U/L (0-50) 01/17/25 09:25
Alkaline Phosphatase 214 U/L (38-126) H 01/17/25 09:25
Total Protein 6.9 g/dl (6.3-8.2) 01/17/25 09:25
Albumin 3.8 g/dl (3.5-5.0) 01/17/25 09:25
Physical Exam
-
He appears comfortable and his abdomen is soft, nondistended and nontender.
== END 2025-01-17 12:42 | disposition home or self-care (01) | DRG 386 ==
LOC: 4 EAST ACU 11:55
PROVIDERS: ADMITTING PHYSICIAN Internal Medicine; CONSULT PHYSICIAN Student in an Organized Health Care Education/Training Program; CONSULT PHYSICIAN Surgery; EMERGENCY PHYSICIAN Student in an Organized Health Care Education/Training Program; FAMILY PHYSICIAN Family Medicine
DX: K50.018 Crohn's disease of small intestine with other complication (principal); E87.1 Hypo-osmolality and hyponatremia; Z79.01 Long term (current) use of anticoagulants; Z79.84 Long term (current) use of oral hypoglycemic drugs; Z87.891 Personal history of nicotine dependence; K59.00 Constipation, unspecified; D64.9 Anemia, unspecified; E11.40 Type 2 diabetes mellitus with diabetic neuropathy, unspecified; E78.00 Pure hypercholesterolemia, unspecified; H54.61 Unqualified visual loss, right eye, normal vision left eye; I10 Essential (primary) hypertension; I48.0 Paroxysmal atrial fibrillation; K70.10 Alcoholic hepatitis without ascites; Z79.899 Other long term (current) drug therapy; Z82.49 Family history of ischemic heart disease and other diseases of the circulatory system; Z94.7 Corneal transplant status
CPT/HCPCS: 74177; 80053; 81003; 81015; 82962; 83605; 83690; 85025; 85027; 86140; 87040; 87077; 87086; 87186; 96374; 99284; J1335; Q9967